=== PATIENT | female | born 1980 | race Caucasian/White ===

== ENCOUNTER 2023-09-16 14:54 | Emergency (ER) | payer OTHER ==
[~2023-09-16] VITALS: Ht 177.8 cm; Wt 70.5 kg
[~2023-09-16 14:54] MED LIST: MOTRIN 800800 MG/TAB PO; PERCOCET 325 MG1 TA2 PO
[2023-09-16 15:07] VITALS: BP 129/74; TEMP 98.1
[2023-09-16] MEDS ORDERED: Naproxen 250 MG TAB PO ONE (15:30)
[2023-09-16] MEDS ORDERED: FLEXERIL 1010 MG/TAB PO (16:08)
[2023-09-16] MEDS ORDERED: Home Cyclobenzaprine 10 MG #2 TABS/PACK PO ONE (16:15)
[2023-09-16 17:15] VITALS: PULSE 60
== END 2023-09-16 16:45 | disposition home or self-care (01) ==
LOC: COL.ER 14:54
DX: S06.0X0A Concussion without loss of consciousness, initial encounter (principal); S16.1XXA Strain of muscle, fascia and tendon at neck level, initial encounter; S20.412A Abrasion of left back wall of thorax, initial encounter; V89.2XXA Person injured in unspecified motor-vehicle accident, traffic, initial encounter; Y92.410 Unspecified street and highway as the place of occurrence of the external cause